=== PATIENT | female | born 1990 | race Hispanic/Latino ===

== ENCOUNTER 2017-10-27 19:33 | Emergency (ER) | payer BC ==
[2017-10-27 19:55] VITALS: BP 123/86; PULSE 89; TEMP 98.5; O2SAT 100
[2017-10-27] MEDS ORDERED: Tetanus/Diphtheria Toxoids 0.5 ml Syringe IM ONE (19:56)
--- NOTE | 2017-10-27 20:00 | C.PDOC ---
History Of Present Illness 27-year-old female, presents to the emergency department with complaints of laceration to the right side of her scalp, after she hit her head with an iPhone. Patient states she was in clinic and became anxious, resulting in hitting her iPhone against her head. Patient denies any nausea/vomiting, numbness/weakness, or any other associated symptoms. No other complaints at this time. Chief Complaint (Nursing): Abnormal Skin Integrity History Per: Patient History/Exam Limitations: no limitations Current Symptoms Are (Timing): Still Present Past Medical History Reviewed: Historical Data, Nursing Documentation, Vital Signs Vital Signs: Last Vital Signs Temp 98.5 F 10/27/17 19:52 Pulse 89 10/27/17 19:52 Resp 20 10/27/17 20:19 BP 123/86 10/27/17 19:52 Pulse Ox 100 10/27/17 20:07 - Medical History PMH: Anxiety Family History: States: No Known Family Hx - Social History Hx Alcohol Use: Yes Hx Substance Use: No - Immunization History Hx Tetanus Toxoid Vaccination: Yes Hx Influenza Vaccination: No Hx Pneumococcal Vaccination: No Review Of Systems Constitutional: Negative for: Fever, Chills Gastrointestinal: Negative for: Nausea, Vomiting Musculoskeletal: Negative for: Neck Pain Neurological: Negative for: Weakness, Numbness Psych: Negative for: Suicidal ideation Physical Exam - Physical Exam Appears: Non-toxic, No Acute Distress Skin: Warm, Dry, No Rash Head: Laceration (3mm to right parietal scalp.) Eye(s): bilateral: Normal Inspection, PERRL, EOMI Nose: Normal Oral Mucosa: Moist Lips: Normal Appearing Neck: Normal ROM Chest: Symmetrical Respiratory: No Accessory Muscle Use Extremity: Normal ROM, No Deformity Neurological/Psych: Oriented x3, Normal Speech ED Course And Treatment O2 Sat by Pulse Oximetry: 100 Pulse Ox Interpretation: Normal (RA) Laceration - Laceration Repair right parietal scalp Wound Length (In cm): 0.3 Description Of Wound: Linear, Clean Wound Examination: Irrigated With Saline (bleeding controlled with pressure.) Wound Closure: Skin Glue (dermabond) Wound Complexity: Simple Medical Decision Making Medical Decision Making: Pt refusing donna or sutures. Disposition - Disposition Disposition: HOME/ ROUTINE Disposition Time: 19:57 Condition: STABLE Additional Instructions: Follow up with your PMD within 1-2 days. Return to ED if feel worse. Instructions: Laceration Repair With Glue (DC) Forms: [facility] (Urdu) - Clinical Impression Clinical Impression: Laceration of scalp - Scribe Statement The provider has reviewed the documentation as recorded by the Scribe (Roosevelt Santos) All medical record entries made by the Scribe were at my direction and personally dictated by me. I have reviewed the chart and agree that the record accurately reflects my personal performance of the history, physical exam, medical decision making, and the department course for this patient. I have also personally directed, reviewed, and agree with the discharge instructions and disposition.
[2017-10-27 20:20] VITALS: RESP 20
== END 2017-10-27 20:19 | disposition home or self-care (01) ==
LOC: C.ER 19:33
DX: S01.01XA Laceration without foreign body of scalp, initial encounter (principal); W22.8XXA Striking against or struck by other objects, initial encounter